=== PATIENT | female | born 1990 | race Two or more races ===

== ENCOUNTER 2016-06-12 21:24 | Inpatient (IN) | payer OTHER ==
[~2016-06-12] VITALS: Ht 149.9 cm; Wt 85.3 kg
--- NOTE | 2016-06-12 21:24 | NUR ---
holli rooney home for c/o midlower abd cramping w/ pelvic pain, heavy VB w/ clots starting today, tried taking motrin for pain w/ no relief, lmp x 06/01/16, A0 report has been having vaginal spotting since. AOx4, afebrile w/ resp even & unlabored, facial grimacing w/ moderate discomfort noted. pt in gown, on continuous monitoring. Pending further anali rooney MD.
--- NOTE | 2016-06-12 21:50 | NUR ---
Labs drawn & sent.
--- NOTE | 2016-06-12 22:25 | NUR ---
Dr. Villareal at bedside for eval.
[2016-06-12] MEDS ORDERED: ONDANSETRON HCL/PF 4 MG/2 ML VIAL IVP ONE (22:30)
[2016-06-12] MEDS ORDERED: HYDROMORPHONE INJ 2 MG/ML DISP.SYRIN IV ONE (22:30)
[2016-06-12] MEDS ORDERED: IV NS 0.9% 1,000 ML BAG IV ONE (22:30)
[2016-06-12] MEDS ORDERED: IV SET PRIMARY 1 EA INFUS.SET MC ONE (22:31)
[2016-06-12] MEDS ORDERED: ONDANSETRON HCL/PF 4 MG/2 ML VIAL ONE (22:31)
[2016-06-12] MEDS ORDERED: IV NS 0.9% 1,000 ML ONE (22:31)
[2016-06-12] MEDS ORDERED: HYDROMORPHONE 1 MG/1 ML DISP.SYRIN ONE (22:31)
[2016-06-12 22:32] LABS: EOSINOPHILS # (AUTO) 0.1 /CMM (0.0-0.7); EOSINOPHILS % (AUTO) 0.5 % (0.0-6.0); HEMATOCRIT 27 % (33-45); HEMOGLOBIN 8.5 g/dL (11.5-14.8); LYMPHOCYTES # (AUTO) 2.5 /CMM (0.8-4.8); LYMPHOCYTES % (AUTO) 18.4 % (20.0-44.0); MEAN CORPUSCULAR HEMOGLOBIN 25 PG (26.0-33.0); MEAN CORPUSCULAR HGB CONC 32 g/dl (31.0-36.0); MEAN CORPUSCULAR VOLUME 78 fL (82-100); MONOCYTES # (AUTO) 0.6 /CMM (0.1-1.30); MONOCYTES % (AUTO) 4.4 % (2.0-12.0); NEUTROPHILS # (AUTO) 10.4 /CMM (1.8-8.9); NEUTROPHILS % (AUTO) 76.7 % (43.0-81.0); PLATELET COUNT (AUTO) 360 /CMM (150-450); RDW COEFFICIENT OF VARIATION 22.2 (11.5-15.0); RED BLOOD CELL COUNT(AUTO) 3.42 MIL/uL (4.0-5.2); WHITE BLOOD COUNT (AUTO) 13.6 K/uL (4.3-11.0)
[2016-06-12 22:44] LABS: CALCIUM, SERUM 8.1 mg/dL (8.5-10.1); POTASSIUM 3.7 mmol/L (3.5-5.1)
--- NOTE | 2016-06-12 22:45 | NUR ---
US tech at bedside for US pelvis.
[2016-06-12 22:46] LABS: PROTHROMBIN TIME 10.7 SECS (9.5-12.7)
[2016-06-12 22:47] LABS: PARTIAL THROMBOPLASTIN TIME < 20 SEC (23-34)
--- NOTE | 2016-06-12 22:51 | NUR ---
Mario augustin in [facility] - 06/12/16 at 2326 by SUSAN pt back fr XR.
--- NOTE | 2016-06-12 23:26 | NUR ---
pt having heavy VB w/ thick dark red blood clots. perineal care provided, gown & linens changed. pt negative candidate for [facility].
--- NOTE | 2016-06-12 23:36 | NUR ---
Dr. Villareal at bedside for update on pt status. pt given water, sitting up in bed drinking w/ no aspiration of flds noted.
[2016-06-13] VITALS (9 sets, daily range): BP systolic 106–121; BP diastolic 58–78
--- NOTE | 2016-06-13 | NUR ---
pt ambulatory w/ steady gait to restroom, urine obtained & sent.
--- NOTE | 2016-06-13 00:34 | NUR ---
Report given to SANDRA Garcia for pt admission to tele 312.1
--- NOTE | 2016-06-13 00:42 | NUR ---
Patient has been given information and discussed w/ Dr. Villareal for need of blood transfusion. Consent for blood transfusion signed & received by pt.
--- NOTE | 2016-06-13 00:43 | NUR ---
MESSAGE LEFT FOR DR BAILEY
[2016-06-13 01:01] LABS: APPEARANCE,URINE CLOUDY (CLEAR); BILIRUBIN,URINE NEGATIVE (NEGATIVE); BLOOD, URINE 3+ Ery/uL (NEGATIVE); KETONES,URINE 1+ (NEGATIVE); LEUKOCYTE ESTERASE ,URINE TRACE (NEGATIVE); NITRITE, URINE NEGATIVE (NEGATIVE); PH,URINE 5.5 (5.0-8.0); PROTEIN,URINE 2+ mg/dl (NEGATIVE); UGLUCOSE NEGATIVE (NEGATIVE)
[2016-06-13 01:07] LABS: COLOR,URINE AMBER (YELLOW)
--- NOTE | 2016-06-13 01:10 | NUR ---
pt transferred via ALS protocol to tele 312-1 via [facility].
--- NOTE | 2016-06-13 01:10 | NUR ---
DR SCOTT ON PHONE WITH JEREMY, ADMITTING AUTOMATIC GLUING MACHINE OPERATOR. DR SCOTT HAS ALREADY SPOKEN WITH DR BAILEY.
[2016-06-13 01:13] LABS: RBC,URINE TOO NUMEROUS TO COUN /HPF (0-2)
[2016-06-13 01:14] LABS: ADD URINE CULTURE NO; BACTERIA,URINE None seen /HPF (None Seen); MUCUS,URINE Few /LPF (None Seen); SQUAMOUS EPITHELIAL CELL,UR Few /HPF (None Seen); WBC,URINE 0-3 /HPF (0-3)
--- NOTE | 2016-06-13 01:15 | NUR ---
[place] HISTORY PROFESSOR NOTE RECEIVED PATIENT FROM ER VIA GURNEY, PATIENT IS ALERT AND ORIENTEDX4, AMBULATORY, DENIES RESPIRATORY DISTRESS AND COMPLAINS OF MILD PAIN ON LOWER ABDOMEN DUE TO VAGINAL BLEEDING. IV ON LEFT AC IS PATENT AND INTACT, WILL CONNECT TO FLUID. TELE SR 65. EDUCATED UNIT ORIENTATION, SRX2, BED IN LOW POSITION, CALL LIGHT WITHIN REACH, WILL CONTINUE TO MONITOR PATIENT.
[2016-06-13] MEDS ORDERED: MAG HYDROX/AL HYDROX/SIMETH 30 ML UDC PO PRN (01:30)
[2016-06-13] MEDS ORDERED: HYDROCODONE/APAP 5/325MG 1 EACH TABLET PO PRN (01:30)
[2016-06-13] MEDS ORDERED: MAGNESIUM HYDROXIDE 30 ML UDC PO PRN (01:30)
[2016-06-13] MEDS ORDERED: MORPHINE SULFATE INJ 2 MG/ML DISP.SYRIN IV PRN (01:30)
[2016-06-13] MEDS ORDERED: ACETAMINOPHEN 325 MG TABLET PO PRN (01:30)
[2016-06-13] MEDS ORDERED: Z GUARD REMEDY 2 OZ OINT TP PRN (01:30)
[2016-06-13] MEDS ORDERED: IV SET PRIMARY PUMP SET 1 EA INFUS.SET MC ONE (01:55)
[2016-06-13] MEDS ORDERED: IV NS 0.9% 1,000 ML ONE ×2 (01:55→21:12)
[2016-06-13] MEDS ORDERED: HYDROMORPHONE 1 MG/1 ML DISP.SYRIN ONE (01:56)
--- NOTE | 2016-06-13 02:00 | NUR ---
INFORMATION SYSTEMS OPERATOR NOTE PATIENT IS ALLERGIC TO MORPHINE, PAGED ONCALL CRIMINAL JUSTICE LAWYER JEREMY, DISCONTINUE MORPHINE AND GOT AN ORDER OF DILAUDID 1MG IVP Q4H INSTEAD. ADMINISTERED DUE TO PT'S LOWER ABDOMINAL PAIN 08/19. QUESTIONED TO CRIMINAL JUSTICE LAWYER ABOUT THE PLAN FOR BLOOD TRANSFUSION DUE TO H&H 7.0 &22. HE STATED RECHECK H&H STAT AND WILL F/U ACCORDING TO THE RESULT. ALL ORDERS PUT AND WILL CARRY OUT. CALLED THE LAB FOR STAT H&H ORDER.
[2016-06-13] MEDS: HYDROMORPHONE 1 MG/1 ML DISP.SYRIN IV PRN ×4 (02:03→18:29)
[2016-06-13] MEDS: IV NS 0.9% 1,000 ML IV PRN ×2 (02:03→21:19)
[2016-06-13 02:33] LABS: HEMOGLOBIN 6.9 g/dL (11.5-14.8)
--- NOTE | 2016-06-13 03:15 | NUR ---
MS RN NOTE REPORTED TO FATIMAH LUNA THAT PATIENT'S H&H IS 6.9. HE ORDERED 1 UNIT OF PRBC TRANSFUSION. ORDER PUT IN AND WILL CARRY OUT. GOT A CONSENT FROM THE PATIENT WELL. NOTIFIED THE LAB.
[2016-06-13] MEDS ORDERED: IV NS 0.9% 250 ML IV ONE (03:46)
[2016-06-13] MEDS ORDERED: BLOOD IV SET 1 EA INFUS.SET MC ONE (03:46)
--- NOTE | 2016-06-13 04:15 | NUR ---
[employer] ANALYST NOTE STARTED 1UNIT OF PRBC. VS WNL. EDUCATED TO PATIENT S/S OF REACTIONS AND NOTIFY RN IF SHE EXPERIENCES ONE OF THOSE SYMPTOMS. THE PATIENT ACKNOWLEDGED.
--- NOTE | 2016-06-13 06:55 | NUR ---
NEUROPSYCHOLOGY DIVISION CHIEF NOTE PATIENT IS RESTING IN BED COMFORTABLY, DENIES S/S OF BLOOD TRANSFUSION REACTIONS, COMPLAINS ON MILD PAIN ON LOWER ABDOMEN. IV ON LEFT AC IS PATENT AND INTACT, 1XPRBC IS RUNNING, DENIES RESPIRATORY DISTRESS. TELE MONITOR SR 72. WILL ENDORSE TO DAY SHIFT FOR SURESH.
--- NOTE | 2016-06-13 08:00 | NUR ---
RN MS NOTES RECEIVED PATIENT IN BED, AWAKE, A/OX3 WITH ONGOING TRANSFUSION OF PRBS. NO S/S OF REACTIONS NOTED. NO SOB OR DISTRESS NOTED, COMPLAINING OF 8/10 PAIN ON RIGHT ABDOMEN/ BACK, PAIN MEDICATION GIVEN WITH ADEQUATE RELIEF. IV LINE PATENT, NO S/S OF INFILTRATION NOTED. PATIENT STATES SHE IS STILL HAVING MINIMAL BLEEDING. ALL NEEDS ATTENDED TO, CALL LIGHT WITHIN REACH.
[2016-06-13] MEDS: PANTOPRAZOLE 40 MG TABLET.DR PO SCH (08:33)
[2016-06-13 09:44] LABS: BASOPHILS % (AUTO) 0.3 % (0.0-2.0); EOSINOPHILS % (AUTO) 0.2 % (0.0-6.0); HEMATOCRIT 24 % (33-45); HEMOGLOBIN 7.7 g/dL (11.5-14.8); LYMPHOCYTES # (AUTO) 2.8 /CMM (0.8-4.8); LYMPHOCYTES % (AUTO) 24.7 % (20.0-44.0); MEAN CORPUSCULAR HEMOGLOBIN 25 PG (26.0-33.0); MEAN CORPUSCULAR HGB CONC 32 g/dl (31.0-36.0); MEAN CORPUSCULAR VOLUME 80 fL (82-100); MONOCYTES # (AUTO) 0.8 /CMM (0.1-1.30); MONOCYTES % (AUTO) 7.4 % (2.0-12.0); NEUTROPHILS # (AUTO) 7.7 /CMM (1.8-8.9); NEUTROPHILS % (AUTO) 67.4 % (43.0-81.0); PLATELET COUNT (AUTO) 236 /CMM (150-450); RDW COEFFICIENT OF VARIATION 20.2 (11.5-15.0); RED BLOOD CELL COUNT(AUTO) 3.04 MIL/uL (4.0-5.2); WHITE BLOOD COUNT (AUTO) 11.4 K/uL (4.3-11.0)
[2016-06-13 10:03] LABS: BILIRUBIN,TOTAL 0.4 mg/dL (0.2-1.0); CALCIUM, SERUM 7.6 mg/dL (8.5-10.1); CREATININE 0.7 mg/dL (0.6-1.3); MAGNESIUM 1.8 mg/dL (1.8-2.4); PHOSPHORUS 3.7 mg/dL (2.5-4.9); POTASSIUM 4.2 mmol/L (3.5-5.1)
[2016-06-13 10:09] LABS: THYROID STIMULATING HORMONE 1.111 uIU/mL (0.358-3.74)
--- NOTE | 2016-06-13 15:30 | NUR ---
RN MS NOTES SEEN AND EVALUATED BY DR BOJORQUEZ PER MD H/H LEVEL IS OK, IF NO COMPLICATIONS MIGHT DC TOMORROW. PLAN OF CARE DISCUSSED WITH PATIENT. NO SIGNS OF DISTRESS NOTED, NO SOB NOTED, WILL CONTINUE TO MONITOR
--- NOTE | 2016-06-13 19:25 | NUR ---
RN MS NOTES PATIENT IN BED RESTING COMFORTABLY, WITH NO SOB. SATED HAVING PAIN ON RIGHT ABDOMEN MORPHINE WAS GIVEN. VITALS STABLE ALL NEEDS MET KEPT CLEAN AND DRY.
--- NOTE | 2016-06-13 19:35 | NUR ---
MS/RN NOTES RECEIVED PT. LYING IN BED. AWAKE, ALERT AND ORIENTED X4. BREATHING EVEN AND UNLABORED ON ROOM AIR. NO SOB, RESPIRATORY DISTRESS OR COMPLAINTS OF PAIN NOTED AT THIS TIME. PT. WITH LEFT AC 20 GAUGE PERIPHERAL IV PRESENT, PATENT AND INTACT ADMINISTERING TO PT. NS @ 75ML/HR. BED IN LOWEST POSITION, CALL LIGHT WITHIN REACH, WILL CONTINUE TO MONITOR.
[2016-06-14] VITALS (10 sets, daily range): BP systolic 104–143; BP diastolic 56–89
[2016-06-14] MEDS: ONDANSETRON HCL/PF 4 MG/2 ML VIAL IVP PRN ×2 (00:08→08:40)
[2016-06-14] MEDS: HYDROMORPHONE 1 MG/1 ML DISP.SYRIN IV PRN ×4 (00:09→19:50)
--- NOTE | 2016-06-14 06:02 | NUR ---
MS/RN NOTES PT. LYING IN BED RESTING. BREATHING EVEN AND UNLABORED ON ROOM AIR. NO SOB, RESPIRATORY DISTRESS OR COMPLAINTS OF PAIN NOTED AT THIS TIME. NO N/V NOTED AT THIS TIME. PT. WITH LEFT AC 20 GAUGE PERIPHERAL IV PRESENT, PATENT AND INTACT ADMINISTERING TO PT. NS @ 75ML/HR. ALL PT. NEEDS MET. PER PT. SCANT AMOUNT OF VAGINAL BLEEDING NOTED THROUGHOUT THE NIGHT, "ITS BARELY THERE, LIKE THE END OF A MENSTRUAL CYCLE, SO MUCH LESS THAN YESTERDAY". BED IN LOWEST POSITION, CALL LIGHT WITHIN REACH, WILL ENDORSE TO DAYSHIFT NURSE FOR CONTINUITY OF CARE.
[2016-06-14 07:33] LABS: BASOPHILS % (AUTO) 0.4 % (0.0-2.0); EOSINOPHILS # (AUTO) 0.1 /CMM (0.0-0.7); EOSINOPHILS % (AUTO) 1.1 % (0.0-6.0); HEMATOCRIT 21 % (33-45); LYMPHOCYTES # (AUTO) 2.9 /CMM (0.8-4.8); LYMPHOCYTES % (AUTO) 45.4 % (20.0-44.0); MEAN CORPUSCULAR HEMOGLOBIN 26 PG (26.0-33.0); MEAN CORPUSCULAR HGB CONC 32 g/dl (31.0-36.0); MEAN CORPUSCULAR VOLUME 79 fL (82-100); MONOCYTES # (AUTO) 0.5 /CMM (0.1-1.30); MONOCYTES % (AUTO) 7.4 % (2.0-12.0); NEUTROPHILS # (AUTO) 2.9 /CMM (1.8-8.9); NEUTROPHILS % (AUTO) 45.7 % (43.0-81.0); PLATELET COUNT (AUTO) 209 /CMM (150-450); RDW COEFFICIENT OF VARIATION 20.1 (11.5-15.0); RED BLOOD CELL COUNT(AUTO) 2.67 MIL/uL (4.0-5.2); WHITE BLOOD COUNT (AUTO) 6.4 K/uL (4.3-11.0)
[2016-06-14 07:47] LABS: CALCIUM, SERUM 7.4 mg/dL (8.5-10.1); CREATININE 0.8 mg/dL (0.6-1.3); MAGNESIUM 1.7 mg/dL (1.8-2.4); PHOSPHORUS 3.8 mg/dL (2.5-4.9); POTASSIUM 3.7 mmol/L (3.5-5.1)
[2016-06-14 08:00] LABS: HEMOGLOBIN 6.8 g/dL (11.5-14.8)
--- NOTE | 2016-06-14 08:00 | NUR ---
MS RN AM NOTES RECEIVED PATIENT IN BED, AWAKE, A/OX3 ,NO SOB OR DISTRESS NOTE IV LINE PATENT, NO S/S OF INFILTRATION NOTED. PATIENT STATES SHE HAD SPOTTING WITH 2 BLOOD CLOTS THIS AM.WITH BRP.NEEDS ATTENDED TO, WILL CONTINUE TO MONITOR.REPORTED PT'S LOW H/H TO DR BOJORQUEZ WITH ORDERS FOR BT OF 2 UNITS PRBC.CALL LIGHT WITHIN REACH.
[2016-06-14] MEDS: PANTOPRAZOLE 40 MG TABLET.DR PO SCH (08:40)
--- NOTE | 2016-06-14 09:00 | NUR ---
PT WENT TO THE TOILET AND IS STATING THAT SHE PASSED OUT 2 SMALL BLOOD CLOTS THIS MORNING.WILL MONITOR
[2016-06-14] MEDS ORDERED: BLOOD IV SET 1 EA INFUS.SET MC ONE (11:12)
[2016-06-14] MEDS ORDERED: IV NS 0.9% 250 ML IV ONE (11:12)
--- NOTE | 2016-06-14 11:51 | NUR ---
PT WENT TO THE TOILET PRIOR TO THE BLOOD TRANSFUSION AND IS STATING THAT SHE PASSED OUT MINIMAL TINY BLOOD CLOTS.WILL MONITOR.
--- NOTE | 2016-06-14 12:00 | NUR ---
STARTED TRANSFUSING FIRST UNIT PRBC WITH STABLE V/S.BLOOD CHECKED AND VERIFIED.TRANSFUSING WELL.PT DENYING ANY PAIN OR DISTRESS..WILL MONITOR.
--- NOTE | 2016-06-14 12:15 | NUR ---
TRANSFUSING FIRST UNIT PRBC WITH NO ADVERSE REACTIONS NOTED.STABLE V/S WILL CONTINUE TO MONITOR.
[2016-06-14 12:34] LABS: EOSINOPHILS % (MANUAL) 1 % (0-4); LYMPHOCYTES % (MANUAL) 46 % (16-48); MONOCYTES % (MANUAL) 3 % (0-11.0); NEUTROPHILS % (MANUAL) 50 (42-76)
[2016-06-14 12:35] LABS: ANISOCYTOSIS 1+; HYPOCHROMASIA 1+; PLATELET ESTIMATE ADEQUATE
--- NOTE | 2016-06-14 14:45 | NUR ---
ADMINISTERED 2ND UNIT PRBC WITH STABLE V/S.PT DENIES ANY PAIN OR DISTRESS.NO C/O ITCHINESS EITHER.WILL CONTINUE TO MONITOR.
--- NOTE | 2016-06-14 14:45 | NUR ---
COMPLETED FIRST UNIT PRBC WITH STABLE V/S.WILL TRANSFUSE 2ND PRBC.
--- NOTE | 2016-06-14 15:06 | NUR ---
ONGOING 2ND UNIT PRBC WITH NO ADVERSE REACTION NOTED.STABLE V/S.AFEBRILE.WILL CONTINUE TO MONITOR.
--- NOTE | 2016-06-14 17:59 | NUR ---
COMPLETED SECOND PRBC TRANSFUSION NO ADVERSE REACTIONS NOTED, NO APPARENT DISTRESS.
[2016-06-14] MEDS ORDERED: SECONDARY IV SET 1 EA INFUS.SET MC ONE (18:54)
[2016-06-14] MEDS: Magnesium 1GM/D5W 100ML PREMIX 100 ML IV SCH ×2 (18:55→20:33)
--- NOTE | 2016-06-14 19:35 | NUR ---
MS/RN NOTES RECEIVED PT. SITTING UP IN BED RESTING. BREATHING EVEN AND UNLABORED ON ROOM AIR. NO SOB, RESPIRATORY DISTRESS. PT. COMPLAINING OF PAIN 8/10 IN RIGHT LOWER ABDOMEN. WILL ADMINISTER PAIN MEDICATION ORDERED, AND WILL CONTINUE TO MONITOR PAIN LEVEL. NO COMPLAINTS OF N/V AT THIS TIME. PT. WITH LEFT AC 20 GAUGE PERIPHERAL IV PRESENT, PATENT AND INTACT ADMINISTERING TO PT. 1 OF 2 BAGS OF MAGNESIUM ORDERED. PER DAYSHIFT RN PT. RECEIVED 2 UNITS OF PRBC'S NO ADVERSE REACTIONS NOTED. PT. STATES HER BLEEDING IS INCREASED TODAY COMPARED TO YESTERDAY AND THAT SHE NOTED 2 SMALL CLOTS WHEN SHE WENT TO THE RESTROOM. BED IN LOWEST POSITION, CALL LIGHT WITHIN REACH, WILL CONTINUE TO MONITOR.
--- NOTE | 2016-06-14 19:42 | NUR ---
MS RN AM/CLOSING NOTES PT COMPLETED 2 PRBC TRANSFUSIONS WITH NO ADVERSE EFFECTS AND WAS STARTED ON MAGNESIUM PT IS NOT IN ANY APPARENT DISTRESS VITALS WNL
--- NOTE | 2016-06-14 19:45 | NUR ---
MS/RN NOTES PER DAYSHIFT NURSE PT. WAS SEEN BY DR. BAILEY JUST BEFORE CHANGE OF SHIFT AND PER DR. BAILEY PT. IS CLEARED FOR D/C. WILL NOTIFY MD MANAGER CULTURE. WILL CONTINUE TO MONITOR.
[2016-06-14 20:44] LABS: BASOPHILS % (AUTO) 0.3 % (0.0-2.0); EOSINOPHILS # (AUTO) 0.1 /CMM (0.0-0.7); EOSINOPHILS % (AUTO) 1.3 % (0.0-6.0); HEMATOCRIT 30 % (33-45); HEMOGLOBIN 9.7 g/dL (11.5-14.8); LYMPHOCYTES # (AUTO) 2.6 /CMM (0.8-4.8); LYMPHOCYTES % (AUTO) 30.3 % (20.0-44.0); MEAN CORPUSCULAR HEMOGLOBIN 27 PG (26.0-33.0); MEAN CORPUSCULAR HGB CONC 33 g/dl (31.0-36.0); MEAN CORPUSCULAR VOLUME 82 fL (82-100); MONOCYTES # (AUTO) 0.8 /CMM (0.1-1.30); MONOCYTES % (AUTO) 9.7 % (2.0-12.0); NEUTROPHILS # (AUTO) 5.1 /CMM (1.8-8.9); NEUTROPHILS % (AUTO) 58.4 % (43.0-81.0); PLATELET COUNT (AUTO) 224 /CMM (150-450); RDW COEFFICIENT OF VARIATION 18.3 (11.5-15.0); RED BLOOD CELL COUNT(AUTO) 3.65 MIL/uL (4.0-5.2); WHITE BLOOD COUNT (AUTO) 8.7 K/uL (4.3-11.0)
--- NOTE | 2016-06-14 21:09 | NUR ---
MS/RN NOTES NOTIFIED PIPED BUTTONHOLE MACHINE OPERATOR JEREMY KRAMER PT. OK FOR D/C BY DR. TREVIZO. PER FATIMAH KRAMER NO NEW ORDERS, NO D/C ORDER AT THIS TIME, KEEP PT. OVERNIGHT. WILL CONTINUE TO MONITOR.
[2016-06-15] MEDS: HYDROMORPHONE 1 MG/1 ML DISP.SYRIN IV PRN ×4 (00:55→14:49)
[2016-06-15] MEDS ORDERED: FUROSEMIDE 20 MG/2 ML VIAL ONE (06:15)
--- NOTE | 2016-06-15 06:17 | NUR ---
MS/RN NOTES PT. LYING IN BED RESTING. BREATHING EVEN AND UNLABORED ON ROOM AIR. NO SOB, RESPIRATORY DISTRESS OR COMPLAINTS OF PAIN NOTED AT THIS TIME. NO COMPLAINTS OF N/V AT THIS TIME AND THROUGHOUT SHIFT. PT. WITH LEFT AC 20 GAUGE PERIPHERAL IV PRESENT, PATENT AND INTACT ADMINISTERING TO PT. NS @ 75ML/HR. PT. STATES SHE IS STILL HAVING MINIMAL AMOUNTS OF BLEEDING AND NOTED SEVERAL SMALL CLOTS WHEN SHE WENT TO THE RESTROOM. ALL PT. NEEDS MET. BED IN LOWEST POSITION, CALL LIGHT WITHIN REACH, WILL ENDORSE TO DAYSHIFT NURSE FOR CONTINUITY OF CARE.
[2016-06-15] MEDS ORDERED: FUROSEMIDE 20 MG/2 ML VIAL IV ONE (06:30)
[2016-06-15 07:41] LABS: CALCIUM, SERUM 7.7 mg/dL (8.5-10.1); CREATININE 0.7 mg/dL (0.6-1.3); MAGNESIUM 2.1 mg/dL (1.8-2.4); POTASSIUM 3.8 mmol/L (3.5-5.1)
--- NOTE | 2016-06-15 07:51 | NUR ---
RN PM NOTES PATIENT IN BED, RESTING AND WAITING FOR BREAKFAST, JUST USED THE RESTROOM. ALERT AND ORIENTED X4, AMBULATORY. NO S/S OF VAGINAL BLEEDING, GENERALIZED WEAKNESS OR DIZZINESS. WILL CONTINUE TO MONITOR.
[2016-06-15 08:00] VITALS: BP 113/69
[2016-06-15 08:01] LABS: IRON, SERUM 16 ug/dl (50-175); TOTAL IRON BINDING CAPACITY 315 ug/dl (250-450)
[2016-06-15 08:03] LABS: FERRITIN 7 ng/mL (8-388)
[2016-06-15] MEDS: PANTOPRAZOLE 40 MG TABLET.DR PO SCH (09:24)
[2016-06-15 15:43] VITALS: BP 118/75
--- NOTE | 2016-06-15 16:04 | NUR ---
DIRECTOR OF SUSTAINABILITY NOTES PATIENT LEFT FACILITY AMBULATORY AND IN STABLE CONDITION ACCOMPANIED BY BOYFRIEND AND TRANSPORTATION SUPERVISOR. ALL DISCHARGE PAPERWORK, INCLUDING WORK NOTE, GIVEN WITH PERSONAL BELONGINGS. EXIT CARE, INCLUDING PATIENT EDUCATION DONE. PATIENT LEFT FACILITY SAFELY IN PRIVATE CAR.
== END 2016-06-15 16:15 | disposition home or self-care (01) | DRG 564 ==
LOC: ER 21:26 → TELE 06-13 00:52 → MED 06-13 08:40
PROVIDERS: ADMIT Contractor; ATTEND Internal Medicine
PROC: 30233N1 Transfusion of Nonautologous Red Blood Cells into Peripheral Vein, Percutaneous Approach (ICD-10-PCS; principal; 2016-06-13)
DX: O02.1 Missed abortion (principal); E44.1 Mild protein-calorie malnutrition; N93.9 Abnormal uterine and vaginal bleeding, unspecified; Z98.84 Bariatric surgery status; E66.9 Obesity, unspecified; D72.829 Elevated white blood cell count, unspecified; D64.9 Anemia, unspecified; K21.9 Gastro-esophageal reflux disease without esophagitis; D50.9 Iron deficiency anemia, unspecified; Z68.38 Body mass index [BMI] 38.0-38.9, adult
CPT/HCPCS: 36415; 76856-TC; 80048-TC; 80053-TC; 80061-TC; 81000-TC; 82728-TC; 82746; 83540-TC; 83615-TC; 83735-TC; 84100-TC; 84443-TC; 84702-TC; 85025-TC; 85027-TC; 85045-TC; 85730-TC; 86921-TC; 87081-TC; A4606; J1170; J1940; J2405; J3475; J7030; J7050; P9016-BL; Z7610